=== PATIENT | female | born 1990 | race Hispanic/Latino ===

== ENCOUNTER 2017-10-30 14:00 | Emergency (ER) | payer OTHER ==
[2017-10-30 15:16] VITALS: BP 119/72; PULSE 85; RESP 18; TEMP 98.3; O2SAT 100
--- NOTE | 2017-10-30 15:40 | ED PDOC ---
Arrival/HPI - General Chief Complaint: Lower Extremity Problem/Injury Time Seen by Provider: 10/30/17 15:24 Historian: Patient - History of Present Illness Narrative History of Present Illness (Text): 10/30/17 15:36 27-year-old female presents today with left ankle pain since approximately 12: 30 this afternoon. Patient states she was going down the stairs slipped and twisted the left ankle while catching herself. Patient complaining of pain over the lateral aspect of the ankle. Denies numbness weakness or tingling in the extremities. Patient states she feels pain radiating up along the lateral aspect of the lower leg. No medications have been taken for pain at home. Patient denies hitting her head. No headaches dizziness or weakness. Patient denies medications for pain. Denies any other complaints. Symptom Onset: Sudden Symptom Course: Unchanged Quality: Aching Severity Level: 5 Past Medical History - Provider Review Nursing Documentation Reviewed: Yes - Travel History Have you recently traveled outside [place] w/in the past 3 mons?: No - Tetanus Immunization Tetanus Immunization: Unknown - Psychiatric Hx Substance Use: No Family/Social History - Physician Review Nursing Documentation Reviewed: Yes Family/Social History: Unknown Family HX Smoking Status: Current Some Days Smoker Hx Alcohol Use: No Hx Substance Use: No Allergies/Home Meds Allergies/Adverse Reactions: Allergies No Known Allergies Allergy (Verified 10/30/17 15:28) Review of Systems - Review of Systems Constitutional: absent: Fatigue, Fevers Respiratory: absent: SOB, Cough Cardiovascular: absent: Chest Pain, Palpitations Gastrointestinal: absent: Abdominal Pain, Nausea, Vomiting Genitourinary Female: absent: Dysuria Musculoskeletal: Arthralgias. absent: Back Pain, Neck Pain Skin: absent: Rash, Pruritis Neurological: absent: Headache, Dizziness Psychiatric: absent: Anxiety, Depression Physical Exam Vital Signs Reviewed: Yes Vital Signs Temp Pulse Resp BP Pulse Ox 10/30/17 15:16 98.3 F 85 18 119/72 100 Temperature: Afebrile Blood Pressure: Normal Pulse: Regular Respiratory Rate: Normal Appearance: Positive for: Well-Appearing, Non-Toxic, Comfortable Pain Distress: None Mental Status: Positive for: Alert and Oriented X 3 - Systems Exam Head: Present: Atraumatic Mouth: Present: Moist Mucous Membranes Neck: Present: Normal Range of Motion Respiratory/Chest: Present: Clear to Auscultation, Good Air Exchange. No: Respiratory Distress, Accessory Muscle Use Cardiovascular: Present: Regular Rate and Rhythm, Normal S1, S2. No: Murmurs Upper Extremity: Present: Normal ROM Lower Extremity: Present: NORMAL PULSES, Normal ROM, Tenderness (left ankle; + ttp over the lateral aspect of the mid shaft of the tib/fib and over the lateral malleolus; no edema, no erythema; no ecchymosis; no proximal fibular tenderness; no dorsal foot tenderness; no achilles tendon tenderness. sensation and distal pulses intact, cap refill <2. ), Neurovascularly Intact. No: CALF TENDERNESS, Swelling, Erythema Neurological: Present: GCS=15, Speech Normal Skin: Present: Warm, Dry, Normal Color. No: Rashes Psychiatric: Present: Alert, Oriented x 3 Medical Decision Making ED Course and Treatment: 10/30/17 15:41 Patient nontoxic well-appearing in no distress with stable vital signs X-rays of the left ankle: no fracture as read by the radiologist. xray of the left tib/fib; no fracture as read by the radiologist pt refused medications for pain. Patient placed in air cast and crutches given for ambulation. I discussed all results in depth with the patient advised to followup with the orthopedist within the next 2 days. Advised return if symptoms worsen persist or new symptoms develop Patient verbalizes understanding of discharge instructions and need for immediate followup. all aspects of this case were discussed the attending of record. Impression: Ankle pain tylenol every 4 hours as needed for pain Rest, ice, compression, elevation Use crutches for ambulation Followup with the orthopedist within the next 2 days Followup with primary care physician within the next 2 days Return if symptoms worsen persist or if new symptoms develop - RAD Interpretation Radiology Orders: 10/30/17 15:28 ANKLE LEFT 3 VIEWS ROUTINE [RAD] Stat TIBIA FIBULA LEFT [RAD] Stat Disposition/Present on Arrival - Present on Arrival Any Indicators Present on Arrival: No History of DVT/PE: No History of Uncontrolled Diabetes: No Urinary Catheter: No History of Decub. Ulcer: No History Surgical Site Infection Following: None - Disposition Have Diagnosis and Disposition been Completed?: Yes Diagnosis: Ankle pain Disposition: HOME/ ROUTINE Disposition Time: 16:28 Patient Plan: Discharge Condition: GOOD Discharge Instructions (ExitCare): Ankle Sprain Additional Instructions: tylenol every 4 hours as needed for pain Rest, ice, compression, elevation Use crutches for ambulation Followup with the orthopedist within the next 2 days Followup with primary care physician within the next 2 days Return if symptoms worsen persist or if new symptoms develop Referrals: Farhad Mccoy III, MD [Medical Doctor] - [place] up with primary [facility] [place] - Follow up with primary [facility] [place] [Outside] - Follow up with primary Forms: [employer] (Croatian), WORK NOTE
--- NOTE | 2017-10-30 16:16 | RAD ---
PROCEDURE: Left Ankle Radiographs. HISTORY: ankle pain COMPARISON: None FINDINGS: BONES: Bone alignment and mineralization are normal. No acute fracture. JOINTS: Normal. Ankle mortise maintained. Talar dome intact SOFT TISSUES: Normal. OTHER FINDINGS: None. IMPRESSION: No acute fracture or dislocation.
--- NOTE | 2017-10-30 16:17 | RAD ---
PROCEDURE: Radiographs of the left tibia and fibula. HISTORY: Left lateral midshaft leg pain COMPARISON: None available. TECHNIQUE: Frontal and lateral views obtained. FINDINGS: BONES: Bone alignment and mineralization are normal. There is no acute displaced fracture or bone destruction JOINT SPACES: Unremarkable. OTHER FINDINGS: None. IMPRESSION: No acute fracture or dislocation.
== END 2017-10-30 16:37 | disposition home or self-care (01) ==
LOC: ED 14:00
DX: M25.572 Pain in left ankle and joints of left foot (principal)